=== PATIENT | male | born 1960 | race Hispanic/Latino ===

== ENCOUNTER 2021-08-06 16:41 | Emergency (ER) | payer SELFPAY ==
[~2021-08-06] VITALS: Ht 162.6 cm; Wt 99.8 kg
[2021-08-06] MEDS ORDERED: CEFUROXIME500 MG PO (17:23)
[2021-08-06] MEDS ORDERED: FLOMAX0.4 MG PO (17:24)
== END 2021-08-06 17:39 | disposition home or self-care (01) ==
LOC: FSED 16:47
DX: R30.0 Dysuria (principal); R31.9 Hematuria, unspecified; N41.0 Acute prostatitis; R35.0 Frequency of micturition; R03.0 Elevated blood-pressure reading, without diagnosis of hypertension; E11.9 Type 2 diabetes mellitus without complications
CPT/HCPCS: 81003; 99283